=== PATIENT | female | born 1970 | race Caucasian/White ===

== ENCOUNTER 2023-05-13 10:02 | Day surgery (SDC) | payer BC ==
[~2023-05-13] VITALS: Ht 160 cm; Wt 86.2 kg
[2023-05-13] VITALS (23 sets, daily range): BP systolic 125–176; BP diastolic 71–106
[~2023-05-13 10:02] MED LIST: AZEL137S4 BOTHNARES; FLUT16SP26 BOTHNARES; LIDOcaine 1% W/epiNEPHrine 1:100,000 20ml vial ONE; MUPI22OI30 TOP; cocaine 4% topical solution 4ml bottle ONE; epiNEPHrine 1 mg/ml 30ml MDV ONE; famotidine 20mg tablet PO ONE; methylPREDNISolone acetate 80mg/ml inj**IM only ONE; mupirocin 2% ointment 22GM ONE; oxymetazoline 15 ML nasal spray NS ONE; ringers solution, lacted 1,000 ML IV SCH; tranexamic acid 100mg/ml inj. ONE; tranexamic acid inj. 1,000 MG in normal saline IV soln 100ML IV ONE
[2023-05-13] MEDS ORDERED: fentaNYL/PF 50MCG/1 ML 2ML syringe IV PRN ×2 (11:20)
[2023-05-13] MEDS ORDERED: ondansetron/PF 4mg/2ml inj IV PRN (11:20)
[2023-05-13] MEDS ORDERED: morphine 4 MG/ML inj SYRINge IV PRN (11:20)
[2023-05-13] MEDS ORDERED: ringers solution, lacted 1,000 ML IV SCH (11:20)
[2023-05-13] MEDS ORDERED: hydrALAZINE 20mg/ml inj. IV PRN (11:20)
[2023-05-13] MEDS ORDERED: epiNEPHrine 1 mg/ml 30ml MDV ONE (12:42)
[2023-05-13] MEDS ORDERED: tranexamic acid 100mg/ml inj. ONE (12:42)
[2023-05-13] MEDS ORDERED: LIDOcaine 1% W/epiNEPHrine 1:100,000 20ml vial ONE (13:00)
[2023-05-13] MEDS ORDERED: sevoflurane 250ml liquid IH ONE (13:06)
[2023-05-13] MEDS ORDERED: midazolam 1 mg/ML 2ml injection ONE (13:13)
[2023-05-13] MEDS ORDERED: fentaNYL/PF 50MCG/1 ML 2ML syringe ONE (13:13)
[2023-05-13] MEDS ORDERED: dexamethasone sod phosphate 4mg/ml inj. ONE (13:23)
[2023-05-13] MEDS ORDERED: propofol inj 20 ML IV ONE (13:23)
[2023-05-13] MEDS ORDERED: LIDOcaine 2% (20mg/ml) 5ml vial ONE (13:23)
[2023-05-13] MEDS ORDERED: ondansetron/PF 4mg/2ml inj ONE (13:26)
--- NOTE | 2023-05-13 14:25 | NUR ---
Received from OR via [facility], accompanied by Anesthesiologist FÁTIMA BASS and report given by Anesthesiolgist. PT REPSONDS TO VERBAL STIMULI. O2 PER MASK AT 6 LPM NO DRESSINGS. NO DRAINAGE. DENIES PAIN AT THIS TIME, WILL CONTINUE TO MONITOR. 20 GUAGE IV TO R FOREARM. MONITOR SR. VSS Addendum: 05/13/23 at 1629 by Clarissa Borrero RN Amended: Links added.
[2023-05-13] MEDS: morphine 2 MG/ML inj. syringe IV PRN ×2 (15:06→16:08)
[2023-05-13] MEDS: labetalol 20mg/4ml (5mg/ml) syringe IV PRN ×3 (15:51→17:17)
[2023-05-13] MEDS ORDERED: salt irrigation nasal spray 45 ML SPRAY NS ONE (17:00)
[2023-05-13] MEDS ORDERED: mupirocin 2% ointment 22GM TP ONE (17:00)
--- NOTE | 2023-05-13 18:47 | NUR ---
PT'S BP IMPROVED AND WITHIN LIMITS TO D/C HOME. PT UP AND ABLE TO AMBULATE SAFELY, VOIDED X 2. STATES PAIN IS IMPROVED. D/C INSTRUCTIONS GIVEN AND GONE OVER W/PT WHO VERBALIZED UNDERSTANDING. PT D/CD TO HOME VIA W/C TO PRIVATE VEHICLE W/O INCIDENT. Addendum: 05/13/23 at 1904 by Hanh Frances RN Amended: Links added.
== END 2023-05-13 18:47 | disposition home or self-care (01) ==
LOC: PAS 10:02
PROVIDERS: ATTEND Otolaryngology
DX: J34.2 Deviated nasal septum (principal); J34.3 Hypertrophy of nasal turbinates; J34.89 Other specified disorders of nose and nasal sinuses; E66.9 Obesity, unspecified; Z68.33 Body mass index [BMI] 33.0-33.9, adult; Z20.822 Contact with and (suspected) exposure to COVID-19; Z79.899 Other long term (current) drug therapy; Z90.49 Acquired absence of other specified parts of digestive tract; Z98.890 Other specified postprocedural states
CPT/HCPCS: 30140; 30520; 31240; 82948; 87811; 93005; A6402; J0171; J0360; J1100; J2250; J2270; J2405; J2704; J3010; J3490; J7030; J7050; J7120; Z7506; Z7508; Z7512; A4618; A6449; A7000; J1040